=== PATIENT | male | born 1955 | race African-American/Black ===

== ENCOUNTER → 2024-01-19 | Emergency (ER) | payer OTHER ==
[~2024-01-19] VITALS: Ht 172.7 cm; Wt 81.8 kg
[~2024-01-19] MED LIST: HYDR25TA PO; PARO30TA99 PO; QUET50TA PO; TRAZ-186 PO
[2024-01-19 10:35] VITALS: TEMP 98.2
[2024-01-19 11:55] LABS: BASOPHILS % (AUTO) 1.3 % (0.0-2.0); HEMATOCRIT 43.2 % (41-53); HEMOGLOBIN 14.1 g/dL (13.5-17.5); LYMPHOCYTES # (AUTO) 1.7 K/uL (1.0-4.8); LYMPHOCYTES % (AUTO) 26.2 % (22.0-44.0); MEAN CORPUSCULAR HEMOGLOBIN 28.4 pg (26.0-34.0); MEAN CORPUSCULAR HGB CONC 32.7 G/dL (31.0-37.0); MEAN CORPUSCULAR VOLUME 87 fL (80-100); MONOCYTES # (AUTO) 0.5 K/uL (0.1-1.0); NEUTROPHILS # (AUTO) 4.1 K/uL (1.8-7.7); NEUTROPHILS % (AUTO) 63.5 % (40.0-70.0); PLATELET COUNT (AUTO) 369 K/uL (150-450); RED BLOOD CELL COUNT(AUTO) 4.98 MIL/uL (4.50-5.90); RED CELL DISTRIBUTION WIDTH 15.1 % (11.5-14.5); WHITE BLOOD COUNT (AUTO) 6.5 K/uL (4.5-11.0)
[2024-01-19 12:18] LABS: CALCIUM, TOTAL 8.7 mg/dL (8.8-10.5); CREATININE 1.44 mg/dL (0.60-1.30); POTASSIUM 4.2 mmol/L (3.5-5.1)
[2024-01-19 12:27] LABS: TROPONIN I-HIGH SENSITIVITY 52 ng/L (<76)
[2024-01-19 13:09] VITALS: BP 134/106; PULSE 81; RESP 16; O2SAT 95
[2024-01-19] MEDS: ASPIRIN 325 MG TABLET PO ONE (13:25)
== END | disposition still patient (30) ==
LOC: EMS 10:20 → CANBEDREQ 14:43
DX: I50.9 Heart failure, unspecified (principal); F15.10 Other stimulant abuse, uncomplicated; N17.9 Acute kidney failure, unspecified; J45.909 Unspecified asthma, uncomplicated; F32.A Depression, unspecified; F20.9 Schizophrenia, unspecified; F12.90 Cannabis use, unspecified, uncomplicated
CPT/HCPCS: 71045; 80048; 83880; 84484; 85025; 93005; 99285; 36415-L1; 36415-TC